=== PATIENT | female | born 2000 | race Hispanic/Latino ===

== ENCOUNTER 2020-04-25 02:41 | Emergency (ER) | payer MEDICAID, SELFPAY ==
[2020-04-25] MEDS ORDERED: NA CHLORIDE 0.9% 1,000 ML ONE (03:21)
[2020-04-25] MEDS ORDERED: ONDANSETRON 4 MG/2 ML VIAL ONE (03:21)
[2020-04-25 03:24] LABS: Protime INR 0.99
[2020-04-25 03:29] LABS: Absolute Lymphocytes (CBC) 6.6 K/uL (0.7-4.9); Basophils % 0.4 % (0-1.3); Hematocrit 38.5 % (36.0-45.0); Lymphocytes % 44.4 % (15.3-44.8); MPV 10.1 fL (7.6-11.3); RBC Red Blood Cell Count 4.23 M/uL (3.86-4.86)
[2020-04-25 03:31] LABS: Barbiturates NEGATIVE (NEGATIVE); Benzodiazepines NEGATIVE (NEGATIVE); Cocaine NEGATIVE (NEGATIVE); METHAMPHETAM NEGATIVE (NEGATIVE); Methadone NEGATIVE (NEGATIVE); Opiates NEGATIVE (NEGATIVE); Phencyclidine NEGATIVE (NEGATIVE); THC Cannibis POSITIVE (NEGATIVE)
[2020-04-25 03:36] LABS: ALT/SGPT 19 U/L (12-78); AST/SGOT 18 U/L (15-37); Alkaline Phosphatase 61 U/L (45-117); BUN Blood Urea Nitrogen 9 mg/dL (7-18); Bicarbonate 21 mmol/L (21-32); Bilirubin Direct 0.1 mg/dL (0-0.2); Bilirubin Total 0.3 mg/dL (0.2-1.0); Glucose Level 163 mg/dL (74-106); Protein, Total 7.1 g/dL (6.4-8.2); Sodium Level 143 mmol/L (136-145)
[2020-04-25 03:37] LABS: Potassium 2.7 mmol/L (3.5-5.1)
[2020-04-25 03:55] LABS: Urine Blood 2+ (NEG); Urine Glucose NEGATIVE (NEG); Urine Protein 1+ (NEG); Urine pH 5.5 (5.0-7.0)
[2020-04-25 04:23] LABS: Urine Bacteria >50 /HPF (<20); Urine Culture Reflex Order REFLEXED; Urine Mucus 2+ /HPF (NONE SEEN)
[2020-04-25] MEDS ORDERED: KCL 20 MEQ/100 mL IVPB 20 MEQ/100 ML BAG IV ONE (04:36)
[2020-04-25] MEDS ORDERED: NA CHLORIDE 0.9% 500 ML ONE ×2 (04:36→05:03)
[2020-04-25] MEDS ORDERED: CEFTRIAXONE/SWI 1gm 1 GM/10 ML SYR ONE (04:36)
[2020-04-25] MEDS ORDERED: POTASSIUM 25 MEQ EFFERV TAB ONE (05:03)
--- NOTE | 2020-04-25 05:22 | EDPHYS ---
Physician Documentation [facility] Name: Darcie Zhang Age: 19 yrs Sex: Female : 2000 Arrival Date: 04/25/2020 Time: 02:43 Bed 4 Private MD: ED Physician Sherif Smyth HPI: 04/25 04:38 This 19 yrs old Female presents to ER via Wheelchair with complaints of Drunk. mh7 04:40 The patient presents to the emergency department with nausea, that is moderate, mh7 vomiting. Onset: The symptoms/episode began/occurred today. Possible causes: Ate marijuana brownies. The symptoms are aggravated by alcohol, marijuana The symptoms are alleviated by nothing. Associated signs and symptoms: Pertinent positives: nausea, vomiting, Pertinent negatives: abdominal pain, anorexia, belching, constipation, diarrhea, dysuria, fever, flatulence, GI bleeding, hematuria, vaginal discharge. Severity of symptoms: At their worst the symptoms were moderate today, in the emergency department the symptoms are unchanged. Patient was at a constitution party and consumed brownies with marijuana in them and drank some alcohol. She started having nausea and vomiting. Denies any headache, abdominal pain, fever, SOB, cough.. 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 - Social history:: Smoking status: Patient denies any tobacco usage or history of. Patient uses alcohol, patient/guardian reports recent binge of alcohol consumption. street drugs, marijuana. ROS: 04:40 Constitutional: Negative for fever, chills, and weight loss, Eyes: Negative for injury, mh7 pain, redness, and discharge, ENT: Negative for injury, pain, and discharge, Neck: Negative for injury, pain, and swelling, Cardiovascular: Negative for chest pain, palpitations, and edema, Respiratory: Negative for shortness of breath, cough, wheezing, and pleuritic chest pain, Back: Negative for injury and pain, : Negative for injury, bleeding, discharge, and swelling, MS/Extremity: Negative for injury and deformity, Skin: Negative for injury, rash, and discoloration, Neuro: Negative for headache, weakness, numbness, tingling, and seizure, Psych: Negative for depression, anxiety, suicide ideation, homicidal ideation, and hallucinations, Allergy/Immunology: Negative for hives, rash, and allergies, Endocrine: Negative for neck swelling, polydipsia, polyuria, polyphagia, and marked weight changes, Hematologic/Lymphatic: Negative for swollen nodes, abnormal bleeding, and unusual bruising. Exam: 04:40 Head/Face: Normocephalic, atraumatic. mh7 04:40 Eyes: Pupils equal round and reactive to light, extra-ocular motions intact. Lids and lashes normal. Conjunctiva and sclera are non-icteric and not injected. Cornea within normal limits. Periorbital areas with no swelling, redness, or edema. ENT: Nares patent. No nasal discharge, no septal abnormalities noted. Tympanic membranes are normal and external auditory canals are clear. Oropharynx with no redness, swelling, or masses, exudates, or evidence of obstruction, uvula midline. Mucous membranes moist. Neck: Trachea midline, no thyromegaly or masses palpated, and no cervical lymphadenopathy. Supple, full range of motion without nuchal rigidity, or vertebral point tenderness. No Meningismus. Chest/axilla: Normal chest wall appearance and motion. Nontender with no deformity. No lesions are appreciated. 04:40 Respiratory: Lungs have equal breath sounds bilaterally, clear to auscultation and percussion. No rales, rhonchi or wheezes noted. No increased work of breathing, no retractions or nasal flaring. Abdomen/GI: Soft, non-tender, with normal bowel sounds. No distension or tympany. No guarding or rebound. No evidence of tenderness throughout. Back: No spinal tenderness. No costovertebral tenderness. Full range of motion. Skin: Warm, dry with normal turgor. Normal color with no rashes, no lesions, and no evidence of cellulitis. MS/ Extremity: Pulses equal, no cyanosis. Neurovascular intact. Full, normal range of motion. Neuro: Awake and alert, GCS 15, oriented to person, place, time, and situation. Cranial nerves II-XII grossly intact. Motor strength 5/5 in all extremities. Sensory grossly intact. Cerebellar exam normal. Normal gait. 04:40 Constitutional: The patient appears in no acute distress, alert, awake, uncomfortable. 04:40 Constitutional: The patient appears Appears intoxicated 04:40 Cardiovascular: Rate: tachycardic, Rhythm: regular, Pulses: no pulse deficits are appreciated, Heart sounds: normal, normal S1and S2, Edema: is not appreciated, JVD: is not appreciated. Vital Signs: 02:54 BP 113 / 73; Pulse 103; Resp 18; Pulse Ox 98% on R/A; Weight 51.71 kg; Height 5 ft. 3 mg2 in. (160.02 cm); 03:27 BP 106 / 73; Pulse 127; Resp 20; Temp 97.8; Pulse Ox 99% ; rr5 04:55 BP 111 / 71; Pulse 107; Resp 19; Pulse Ox 100% ; rr5 05:32 BP 123 / 89; Pulse 95; Resp 17; Pulse Ox 100% ; rr5 05:55 BP 116 / 70; Pulse 90; Resp 16; Pulse Ox 98% ; rr5 02:54 Body Mass Index 20.19 (51.71 kg, 160.02 cm) mg2 MDM: 03:32 Patient medically screened. 7 05:19 Differential diagnosis: gastritis, viral gastroenteritis, gastroenteritis, UTI, mh7 Substance Abuse, Drug Intoxication. Data reviewed: vital signs, nurses notes, lab test result(s), CBC, drug level(s), electrolytes, urinalysis. Data interpreted: Pulse oximetry: on room air is 100 %. Interpretation: normal. Counseling: I had a detailed discussion with the patient and/or guardian regarding: the historical points, exam findings, and any diagnostic results supporting the discharge/admit diagnosis, the presence of at least one elevated blood pressure reading (>120/80) during this emergency department visit, lab results, the need for outpatient follow up, to return to the emergency department if symptoms worsen or persist or if there are any questions or concerns that arise at home. Response to treatment: the patient's symptoms have resolved after treatment, the patient's blood pressure is in an acceptable range, mental status has returned to baseline, the patient no longer shows bradycardia, the patient is not short of breath, the patient is not tachycardic, the patient's pain is gone, the patient's temperature has normalized. 06:48 ED course: Feels better, NAD, VSS. No nausea, vomiting, abdominal pain. Tolerated oral mh7 intake. Patient requested to be discharged from the ED with her boyfriend.. 04/25 03:02 Order name: Acetaminophen; Complete Time: 04:06 [facility] 04/25 03:02 Order name: Basic Metabolic Panel; Complete Time: 04:06 [facility] 04/25 03:02 Order name: CBC with Diff; Complete Time: 04:06 [facility] 04/25 03:02 Order name: ETOH Level; Complete Time: 04:06 [facility] 04/25 03:02 Order name: Hepatic Function; Complete Time: 04:06 [facility] 04/25 03:02 Order name: PT-INR; Complete Time: 04:06 [facility] 04/25 03:02 Order name: Ptt, Activated; Complete Time: 04:06 [facility] 04/25 03:02 Order name: Salicylate; Complete Time: 04:06 [facility] 04/25 03:02 Order name: Urine Drug Screen; Complete Time: 04:06 [facility] 04/25 03:53 Order name: Urine Dipstick--Ancillary (enter results) [facility] 04/25 03:53 Order name: Urine Microscopic Only [facility] 04/25 03:54 Order name: Urine --Ancillary (enter results) [facility] 04/25 03:54 Order name: Urine --Ancillary; Complete Time: 04:06 [facility] 04/25 04:24 Order name: Urine Culture [facility] 04/25 03:02 Order name: Urine Test (obtain specimen); Complete Time: 03:49 [facility] 04/25 03:02 Order name: EKG; Complete Time: 03:03 [facility] 04/25 03:02 Order name: EKG - Nurse/Tech; Complete Time: 03:27 [facility] 04/25 03:02 Order name: IV Saline Lock; Complete Time: 03:05 [facility] 04/25 03:02 Order name: Labs collected and sent; Complete Time: 03:05 [facility] 04/25 03:02 Order name: Urine Dipstick-Ancillary (obtain specimen); Complete Time: 03:49 rr5 Administered Medications: 03:00 Drug: NS 0.9% 1000 ml Route: IV; Rate: 1 bolus; Site: right forearm; rr5 04:00 Follow up: Response: No adverse reaction; IV Status: Completed infusion; IV Intake: rr5 1000ml 03:02 Drug: Zofran (Ondansetron) 4 mg Route: IVP; Site: right forearm; rr5 04:00 Follow up: Response: No adverse reaction rr5 04:20 Drug: Rocephin - (cefTRIAXone) 1 grams Route: IVPB; Infused Over: 30 mins; Site: right rr5 forearm; 05:00 Follow up: IV Status: Completed infusion rr5 04:31 Drug: Potassium Chloride 20 mEq Route: IV; Rate: calculated rate; Site: right forearm; rr5 05:30 Follow up: Response: No adverse reaction; IV Status: Completed infusion; IV Intake: rr5 100ml 04:56 Drug: Potassium Effervescent Tablet 50 mEq Route: PO; rr5 05:55 Follow up: Response: No adverse reaction rr5 04:56 Drug: NS 0.9% 1000 ml Route: IV; Rate: 1 bolus; Site: right forearm; rr5 05:54 Follow up: Response: No adverse reaction; IV Status: Completed infusion; IV Intake: rr5 1000ml 05:30 Drug: Phenergan 12.5 mg Route: IVP; Site: right forearm; rr5 05:55 Follow up: Response: No adverse reaction; Marked relief of symptoms rr5 Disposition: 04/25/20 05:21 Discharged to Home. Impression: Marijuana Abuse, Vomiting, UTI, Hypokalemia. - Condition is Stable. - Discharge Instructions: Cannabis Use Disorder, Nausea and Vomiting, Adult, Utyb-ba-Ehel, Urinary Tract Infection, Adult, [id number], Hypokalemia. - Prescriptions for Zofran ODT 4 mg Oral tablet,disintegrating - place 1 tablet by TRANSLINGUAL route every 8 hours As needed; 6 tablet. Keflex 500 mg Oral Capsule - take 1 capsule by ORAL route every 12 hours for 7 days; 14 capsule. - Medication Reconciliation Form, Thank You Letter, Antibiotic Education, Prescription Opioid Use form. - Follow up: Private Physician; When: 1 - 2 days; Reason: Worsening of condition, Recheck today's complaints, Continuance of care, Re-evaluation by your physician. - Problem is new. - Symptoms have improved. Signatures: Dispatcher [employer] EDRoderick Mike RN RN mg2 Wili Welch RN RN rr5 Sherif Smyth MD MD 7 Corrections: (The following items were deleted from the chart) 05:23 05:21 04/25/2020 05:21 Discharged to Home. Impression: Marijuana Abuse; Vomiting; UTI. mh7 Condition is Stable. Forms are Medication Reconciliation Form, Thank You Letter, Antibiotic Education, Prescription Opioid Use. Follow up: Private Physician; When: 1 - 2 days; Reason: Worsening of condition, Recheck today's complaints, Continuance of care, Re-evaluation by your physician. Problem is new. Symptoms have improved. 7 05:56 05:23 04/25/2020 05:21 Discharged to Home. Impression: Marijuana Abuse; Vomiting; UTI; rr5 Hypokalemia. Condition is Stable. Discharge Instructions: Cannabis Use Disorder, Nausea and Vomiting, Adult, [id number]-Dkaf, Urinary Tract Infection, Adult, Zhsw-av-Iuzi, Hypokalemia. Forms are Medication Reconciliation Form, Thank You Letter, Antibiotic Education, Prescription Opioid Use. Follow up: Private Physician; When: 1 - 2 days; Reason: Worsening of condition, Recheck today's complaints, Continuance of care, Re-evaluation by your physician. Problem is new. Symptoms have improved. mh7
--- NOTE | 2020-04-25 05:22 | ER ---
Nurse's Notes [facility] Name: Darcie Zhang Age: 19 yrs Sex: Female : 2000 Arrival Date: 04/25/2020 Time: 02:43 Bed 4 Private MD: Diagnosis: Marijuana Abuse;Vomiting;UTI;Hypokalemia Presentation: 04/25 02:54 Chief complaint: Spouse and/or significant other states: she is overly alcohol mg2 intoxicated. she had brownie infused with THC. Coronavirus screen: Client denies travel out of the [place] in the last 14 days. At this time, the client does not indicate any symptoms associated with coronavirus-19. Ebola Screen: No symptoms or risks identified at this time. Initial Sepsis Screen: Does the patient meet any 2 criteria? No. Patient's initial sepsis screen is negative. Does the patient have a suspected source of infection? No. Patient's initial sepsis screen is negative. Risk Assessment: Do you want to hurt yourself or someone else? Patient reports no desire to harm self or others. Onset of symptoms was April 25, 2020. 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 - Social history:: Smoking status: Patient denies any tobacco usage or history of. Patient uses alcohol, patient/guardian reports recent binge of alcohol consumption. street drugs, marijuana. Screenin:50 Abuse screen: Denies threats or abuse. Denies injuries from another. Nutritional rr5 screening: No deficits noted. Tuberculosis screening: No symptoms or risk factors identified. Fall Risk IV access (20 points). Gait- Impaired (20 pts.). Mental Status- Overestimates/Forgets Limitations (15 pts.). Total Nassar Fall Scale indicates High Risk Score (45 or more points). Fall prevention measures have been instituted. Side Rails Up X 2 Placed Close to Nursing Station Frequent Obs/Assessments Occuring Family Present and informed to notify staff if the need to leave the bedside As available patient and family educated on Fall Prevention Program and Strategies. Assessment: 03:00 General: Appears in no apparent distress. uncomfortable, unkempt, Behavior is drowsy. rr5 03:00 Pain: Unable to use pain scale. Patient appears confused. Neuro: Level of Consciousness rr5 is confused. Cardiovascular: Capillary refill < 3 seconds Patient's skin is warm and dry. Respiratory: Airway is patent Respiratory effort is even, unlabored, Respiratory pattern is regular, symmetrical. GI: Parent/caregiver reports the patient having vomiting. : No signs and/or symptoms were reported regarding the genitourinary system. EENT: No signs and/or symptoms were reported regarding the EENT system. Derm: Skin is intact, is healthy with good turgor, Skin temperature is warm. Musculoskeletal: Capillary refill < 3 seconds. 03:50 Reassessment: K 2.7 result, ED provider aware. rr5 04:40 Reassessment: Patient appears in no apparent distress at this time. eyes closed respond rr5 to verbal stimuli, vital signs taken and recorded. 05:10 Reassessment: Patient appears in no apparent distress at this time. Patient is alert, rr5 oriented x 3, equal unlabored respirations, skin warm/dry/pink. able to drink the medication no vomiting noted. 05:50 Reassessment: Patient appears in no apparent distress at this time. Patient is alert, rr5 oriented x 3, equal unlabored respirations, skin warm/dry/pink. discharge instruction given and explained without complaints made Patient states feeling better. Patient states symptoms have improved. Vital Signs: 02:54 BP 113 / 73; Pulse 103; Resp 18; Pulse Ox 98% on R/A; Weight 51.71 kg; Height 5 ft. 3 mg2 in. (160.02 cm); 03:27 BP 106 / 73; Pulse 127; Resp 20; Temp 97.8; Pulse Ox 99% ; rr5 04:55 BP 111 / 71; Pulse 107; Resp 19; Pulse Ox 100% ; rr5 05:32 BP 123 / 89; Pulse 95; Resp 17; Pulse Ox 100% ; rr5 05:55 BP 116 / 70; Pulse 90; Resp 16; Pulse Ox 98% ; rr5 02:54 Body Mass Index 20.19 (51.71 kg, 160.02 cm) mg2 ED Course: 02:43 Patient arrived in ED. bp1 02:56 Triage completed. mg2 02:57 Arm band placed on. mg2 03:00 Patient has correct armband on for positive identification. Placed in gown. Bed in low rr5 position. Side rails up X2. Adult w/ patient. broaching machine set up operator on. Pulse ox on. NIBP on. 03:00 Inserted saline lock: 20 gauge in right forearm, using aseptic technique. Blood rr5 collected. 03:00 No provider procedures requiring assistance completed. rr5 03:02 Sherif Smyth MD is Attending Physician. 7 03:02 Wili Welch RN is Primary Nurse. rr5 05:33 IV discontinued, intact, bleeding controlled, No redness/swelling at site. Pressure rr5 dressing applied. Administered Medications: 03:00 Drug: NS 0.9% 1000 ml Route: IV; Rate: 1 bolus; Site: right forearm; rr5 04:00 Follow up: Response: No adverse reaction; IV Status: Completed infusion; IV Intake: rr5 1000ml 03:02 Drug: Zofran (Ondansetron) 4 mg Route: IVP; Site: right forearm; rr5 04:00 Follow up: Response: No adverse reaction rr5 04:20 Drug: Rocephin - (cefTRIAXone) 1 grams Route: IVPB; Infused Over: 30 mins; Site: right rr5 forearm; 05:00 Follow up: IV Status: Completed infusion rr5 04:31 Drug: Potassium Chloride 20 mEq Route: IV; Rate: calculated rate; Site: right forearm; rr5 05:30 Follow up: Response: No adverse reaction; IV Status: Completed infusion; IV Intake: rr5 100ml 04:56 Drug: Potassium Effervescent Tablet 50 mEq Route: PO; rr5 05:55 Follow up: Response: No adverse reaction rr5 04:56 Drug: NS 0.9% 1000 ml Route: IV; Rate: 1 bolus; Site: right forearm; rr5 05:54 Follow up: Response: No adverse reaction; IV Status: Completed infusion; IV Intake: rr5 1000ml 05:30 Drug: Phenergan 12.5 mg Route: IVP; Site: right forearm; rr5 05:55 Follow up: Response: No adverse reaction; Marked relief of symptoms rr5 Intake: 04:00 IV: 1000ml; Total: 1000ml. rr5 05:30 IV: 100ml; Total: 1100ml. rr5 05:54 IV: 1000ml; Total: 2100ml. rr5 Outcome: 05:21 Discharge ordered by . health system 05:56 Discharged to home via wheelchair, with family. rr5 05:56 Condition: improved 05:56 Discharge instructions given to patient, friend, Instructed on discharge instructions, follow up and referral plans. medication usage, Demonstrated understanding of instructions, follow-up care, medications, Prescriptions given X 2. 05:56 Patient left the ED. rr5 Addendum: 04/28/2020 18:50 Addendum: Culture Results: Positive urine culture. Bacteria is resistant to, has s s intermediate sensitivity, or is not tested against prescribed antibiotics. Report given to JOSEPH for further evaluation and then to supervisor drilling and shooting for follow up with patient. Phone call Attempt #1 attempted to call patient as the recommendation by Jeannie Baugh, HOOP COILING MACHINE OPERATOR is to stop KEFLEX and prescribe MACROBID instead. No answer. Left VM. Signatures: Dotty Rodriguez RN RN Roderick Álvarez, YAW TIDWELL [facility] Wili Welch RN RN rr5 Dana Villagomez Maurice, MD MD 7 Corrections: (The following items were deleted from the chart) 04/25 03:20 03:00 NS 0.9% 1000 ml IV at 1 bolus in Other rr5 rr5
[2020-04-25] MEDS ORDERED: PROMETHAZINE INJ 25 MG/ML AMP ONE (05:49)
[2020-04-25 06:40] VITALS: TEMP 97.8
[2020-04-25 06:53] VITALS: BP 116/70; O2SAT 98
--- NOTE | 2020-04-25 10:10 | EKG ---
Test Date: 2020-04-25 Test Time: 04:02:47 Docket Clerk: RR MEASUREMENT RESULTS: Intervals: Rate: 101 NC: 156 QRSD: 88 QT: 362 QTc: 469 [place]: P: 52 NC: 156 QRS: 84 T: 49 INTERPRETIVE STATEMENTS: Sinus tachycardia Otherwise normal ECG No previous ECG available for comparison Electronically Signed On 04-25-20 10:09:55 LOG CLERK by Alber Castillo
== END 2020-04-25 05:56 | disposition home or self-care (01) ==
LOC: ER 02:41
DX: F12.10 Cannabis abuse, uncomplicated (principal); E87.6 Hypokalemia; N39.0 Urinary tract infection, site not specified
CPT/HCPCS: 96365; 96361; 93005; 87088; 85025; 87086; 80048; 36415; 80320; 80329 ×2; 81025; 85610; 80076; 80307 ×8; 85730; 87077; 87186; 96375; 99284; J2550; J3480; J0696; J7040 ×2; J7030; J2405; 81003; 81015